=== PATIENT | female | born 1990 ===

== ENCOUNTER 2016-12-31 16:46 | Emergency (ER) | payer OTHER ==
--- NOTE | 2016-12-31 17:16 | ED CLINICAL REPORT ---
Clinical Report - Physicians/Mid Levels [facility] [address] [place] [address] 12/31/2016 16:47 Patient: STEFAN ADORNO Time Seen: 16:58 Dec 31 2016. Arrived- By private vehicle. HISTORY OF PRESENT ILLNESS Chief Complaint: DENTAL PAIN. This started today and is still present. Pain described as mild. The patient has had toothache. (right dental pain since this morning. Reports taking Motrin in the milligrams 3 times today. Denies any fevers or chills. Possible crack fifth stable. Denies any facial swelling.). REVIEW OF SYSTEMS No cough, chest pain, missed periods, headache or skin rash. No enlarged lymph nodes. All systems otherwise negative, except as recorded above. PAST HISTORY Problems: Bronchitis. Additional Surgeries: no known surgeries. SOCIAL HISTORY Smoker- current status unknown. No alcohol use. ADDITIONAL NOTES The nursing notes have been reviewed. PHYSICAL EXAM Vital Signs: 12/31/2016 16:56 BP: 135/95. HR: 70. RR: 20. O2 saturation: 100%. Temp: 98.2 F. Pain level now: 9/10. Appearance: Alert. Head: Normal external inspection. Eyes: Conjunctivae and eyelids normal. ENT: Dental tenderness (Right upper molar with someinflammation surrounding the right molar and swelling of the gumline no palpable mass). Nose normal. Pharynx normal. Lips normal. Uvula midline. No nasal discharge. Normal ear exam. Neck: Trachea midline. No adenopathy. No thyromegaly. CVS: Normal heart rate and rhythm. Heart sounds normal. Respiratory: No respiratory distress. Breath sounds normal. Abdomen: Soft. No organomegaly. No rebound tenderness. Skin: Normal skin color. No rash. PROGRESS AND PROCEDURES Course of Care: Uvula midline no facial swelling, no signs of Luis Armando's angina. No lymphadenopathy. Patient very stable. Tolerating her own secretions well. Stable. Patient is stable. Physical exam findings are improved. Symptoms better. Patient/family counseled. Disposition: Discharged. CLINICAL IMPRESSION Mild dental pain. INSTRUCTIONS Drink plenty of fluids. Prescription Medications: Hydrocodone/APAP 5mg / 325mg: take 1 orally every 6 hours as needed for pain. Dispense five (5). No refill. Amoxicillin 500 mg tablets: Take 1 orally every 8 hours for 10 days. Dispense thirty (30). No refills. Follow-up: Follow up with doctor in three days. (Electronically signed by Shantel Garcia P.A.-C 12/31/2016 17:18)
--- NOTE | 2016-12-31 17:16 | ED ORDER SUMMARY ---
..... Patient: STEFAN ADORNO OrderSheet [facility] VisitID: [id number] [address] [place] [address] 26y, F Registration Date/Time: 12/31/2016 ORDER SHEET Weight: 81.6 kg (stated) Allergies: No Known Drug Allergy GENERAL ORDERS: MEDICATION ORDERS: Amoxicillin PO 500 mg (NOW) (16:56 12/31/2016 EKoroleva P.A.-C) (Ack 17:02 SRoberts R.N.) (17:12 SRoberts R.N.) Hydrocodone-APAP PO 5/325 mg (NOW, HIGH ALERT MEDICATION) (16:57 12/31/2016 EKoroleva P.A.-C) (Ack 17:02 SRoberts R.N.) (17:12 SRoberts R.N.) IV FLUIDS: ORDER SHEET NOTES: [Electronically signed by Shantel Garcia PAndrezAAndrez-C (17:18 12/31/2016)] [Electronically signed by Melany Patterson R.N. (18:21 12/31/2016)] [Electronically signed by Melany Patterson R.N. (18:22 12/31/2016)] [Electronically signed by Melany Patterson R.N. (18:23 12/31/2016)] [Electronically signed by Melany Patterson R.N. (18:24 12/31/2016)] [Electronically locked/signed by Melany Patterson R.N. (18:21 12/31/2016)]
--- NOTE | 2016-12-31 17:16 | ED ORDER SUMMARY ---
..... Patient: STEFAN ADORNO OrderSheet [facility] VisitID: [id number] [address] [place] [address] 26y, F Registration Date/Time: 12/31/2016 ORDER SHEET Weight: 81.6 kg (stated) Allergies: No Known Drug Allergy GENERAL ORDERS: MEDICATION ORDERS: Amoxicillin PO 500 mg (NOW) (16:56 12/31/2016 EKoroleva P.A.-C) (Ack 17:02 SRoberts R.N.) (17:12 SRoberts R.N.) Hydrocodone-APAP PO 5/325 mg (NOW, HIGH ALERT MEDICATION) (16:57 12/31/2016 EKoroleva P.A.-C) (Ack 17:02 SRoberts R.N.) (17:12 SRoberts R.N.) IV FLUIDS: ORDER SHEET NOTES: [Electronically signed by Shantel Garcia PAndrezAAndrez-C (17:18 12/31/2016)] [Electronically signed by Melany Patterson R.N. (18:21 12/31/2016)] [Electronically signed by Melany Patterson R.N. (18:22 12/31/2016)] [Electronically signed by Melany Patterson R.N. (18:23 12/31/2016)] [Electronically signed by Melany Patterson R.N. (18:24 12/31/2016)] [Electronically locked/signed by Melany Patterson R.N. (18:21 12/31/2016)]
--- NOTE | 2016-12-31 17:16 | ED CLINICAL REPORT ---
Clinical Report - Physicians/Mid Levels [facility] [address] [place] [address] 12/31/2016 16:47 Patient: STEFAN ADORNO Time Seen: 16:58 Dec 31 2016. Arrived- By private vehicle. HISTORY OF PRESENT ILLNESS Chief Complaint: DENTAL PAIN. This started today and is still present. Pain described as mild. The patient has had toothache. (right dental pain since this morning. Reports taking Motrin in the milligrams 3 times today. Denies any fevers or chills. Possible crack fifth stable. Denies any facial swelling.). REVIEW OF SYSTEMS No cough, chest pain, missed periods, headache or skin rash. No enlarged lymph nodes. All systems otherwise negative, except as recorded above. PAST HISTORY Problems: Bronchitis. Additional Surgeries: no known surgeries. SOCIAL HISTORY Smoker- current status unknown. No alcohol use. ADDITIONAL NOTES The nursing notes have been reviewed. PHYSICAL EXAM Vital Signs: 12/31/2016 16:56 BP: 135/95. HR: 70. RR: 20. O2 saturation: 100%. Temp: 98.2 F. Pain level now: 9/10. Appearance: Alert. Head: Normal external inspection. Eyes: Conjunctivae and eyelids normal. ENT: Dental tenderness (Right upper molar with someinflammation surrounding the right molar and swelling of the gumline no palpable mass). Nose normal. Pharynx normal. Lips normal. Uvula midline. No nasal discharge. Normal ear exam. Neck: Trachea midline. No adenopathy. No thyromegaly. CVS: Normal heart rate and rhythm. Heart sounds normal. Respiratory: No respiratory distress. Breath sounds normal. Abdomen: Soft. No organomegaly. No rebound tenderness. Skin: Normal skin color. No rash. PROGRESS AND PROCEDURES Course of Care: Uvula midline no facial swelling, no signs of Luis Armando's angina. No lymphadenopathy. Patient very stable. Tolerating her own secretions well. Stable. Patient is stable. Physical exam findings are improved. Symptoms better. Patient/family counseled. Disposition: Discharged. CLINICAL IMPRESSION Mild dental pain. INSTRUCTIONS Drink plenty of fluids. Prescription Medications: Hydrocodone/APAP 5mg / 325mg: take 1 orally every 6 hours as needed for pain. Dispense five (5). No refill. Amoxicillin 500 mg tablets: Take 1 orally every 8 hours for 10 days. Dispense thirty (30). No refills. Follow-up: Follow up with doctor in three days. (Electronically signed by Shantel Garcia P.A.-C 12/31/2016 17:18)
--- NOTE | 2016-12-31 17:16 | ED NURSING NOTES ---
Clinical Report - Nurses [facility] [place] [address] [place] [address] 12/31/2016 16:47 Patient: STEFAN ADORNO TRIAGE Triage time 16:56. Acuity: LEVEL 3. Chief Complaint: RIGHT UPPER TOOTHACHE and CHIPPED TOOTH. Alert. No acute distress. --17:01 Melany Patterson R.N. 16:56 12/31/16. BP: 135/95. HR: 70. RR: 20. O2 saturation: 100%. Temp: 98.2 F. Pain level now: 05/06. --17:01 Melany Patterson R.N. Weight: 81.6 kg stated. Height/Length: 66 inches. BMI: 29. --17:01 Melany Patterson R.N. Medications Methotrexate Oral. --16:59 Melany Patterson R.N. The following entry was struck by Melany Patterson R.N., 17:00 (12/31/16) Reason - other. <<STRICKEN ENTRY-- Bactrim DS Oral 1 tablet, 2x a day. --16:59 Melany Patterson R.N. --END STRIKE>>. Medication/allergy information source: the patient. --17:01 Melany Patterson R.N. Allergies No Known Drug Allergy. --16:59 Melany Patterson R.N. History Arrived by private vehicle. Historian: patient and family. Primary physician ([facility]). This started today. She has had facial pain. 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 PAST MEDICAL HX: Immunizations: up-to-date. Last normal menstrual period was 1 week ago. SOCIAL HX: Light tobacco smoker (cigarette)- less than 1/2 a pack per day. No alcohol use or drug use. FALL RISK ASSESSMENT: Fall risk assessment completed. No fall risk identified. NUTRITIONAL RISK ASSESSMENT: The nutritional risk assessment revealed no deficiencies. FUNCTIONAL ASSESSMENT: Functional assessment: no impairments noted. LEARNING NEEDS ASSESSMENT: The learning needs assessment revealed no barriers. SKIN INTEGRITY ASSESSMENT: Skin integrity risk assessment completed. No skin integrity risk identified. --17:01 Melany Patterson R.N. PROBLEMS: Bronchitis. --16:58 Melany Patterson R.N. ADDITIONAL SURGERIES: no known surgeries. Interventions ID band on patient. To room. --17:01 Melany Patterson R.N. PHYSICAL ASSESSMENT Ambulatory to room. GENERAL / NEURO / PSYCH: Alert. Oriented X 4. HEENT: Voice within normal limits. Dental tenderness. Dental decay. Mucous membranes are pink. RESPIRATORY: Respirations not labored. CVS: Capillary refill less than 2 seconds. SKIN: Skin is warm and dry. Normal skin turgor. --17:02 Melany Patterson R.N. NURSING PROGRESS NOTES Head of bed elevated. Two patient identifiers checked. Call light placed in reach. Side rails up x 1. Bed placed in lowest position. Brakes of bed on. Patient ready for evaluation. --17:02 Melany Patterson R.N. 17:07 12/31/2016 Amoxicillin PO 500 mg given. Allergies verified and confirmed 5 rights. --17:12 Melany Patterson R.N. 17:07 12/31/2016 Hydrocodone-APAP (Hydrocodone-Acetaminophen) PO 5/325 mg Tablets 1 tab given. Allergies verified, confirmed 5 rights and sedative warning given to the patient. --17:12 Melany Patterson R.N. DISPOSITION / DISCHARGE Condition at departure: improved. The goals identified in the patient's plan of care were met. No learning barriers present. Patient and spouse verbalized understanding. Written instructions provided in Samoan. The patient was discharged by the physician assistant spa director. She was discharged home and accompanied by spouse. She left the Emergency Department ambulatory and via private vehicle. Spouse driving. Patient has no belongings. FALL RISK ASSESSMENT: Fall risk assessment completed. No fall risk identified. --17:42 Leigh Kern R.N. 17:39 12/31/16. BP: 107/64. HR: 66. RR: 16. O2 saturation: 97%. Temp: 98.3 F. Pain level now: 7/10. Additional comments: pt stating 7/10 pain level, just recently recieved oral pain meds as prescribed by ED MD. --17:42 Leigh Kern R.N. Locked/Released at 12/31/2016 18:24 by Melany Patterson R.N.
--- NOTE | 2016-12-31 17:16 | ED NURSING NOTES ---
Clinical Report - Nurses [facility] [address] [place] [address] 12/31/2016 16:47 Patient: STEFAN ADORNO TRIAGE Triage time 16:56. Acuity: LEVEL 3. Chief Complaint: RIGHT UPPER TOOTHACHE and CHIPPED TOOTH. Alert. No acute distress. --17:01 Melany Patterson R.N. 16:56 12/31/16. BP: 135/95. HR: 70. RR: 20. O2 saturation: 100%. Temp: 98.2 F. Pain level now: 05/06. --17:01 Melany Patterson R.N. Weight: 81.6 kg stated. Height/Length: 66 inches. BMI: 29. --17:01 Melany Patterson R.N. Medications Methotrexate Oral. --16:59 Melany Patterson R.N. The following entry was struck by Melany Patterson R.N., 17:00 (12/31/16) Reason - other. <<STRICKEN ENTRY-- Bactrim DS Oral 1 tablet, 2x a day. --16:59 Melany Patterson R.N. --END STRIKE>>. Medication/allergy information source: the patient. --17:01 Melany Patterson R.N. Allergies No Known Drug Allergy. --16:59 Melany Patterson R.N. History Arrived by private vehicle. Historian: patient and family. Primary physician ([facility]). This started today. She has had facial pain. 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 PAST MEDICAL HX: Immunizations: up-to-date. Last normal menstrual period was 1 week ago. SOCIAL HX: Light tobacco smoker (cigarette)- less than 1/2 a pack per day. No alcohol use or drug use. FALL RISK ASSESSMENT: Fall risk assessment completed. No fall risk identified. NUTRITIONAL RISK ASSESSMENT: The nutritional risk assessment revealed no deficiencies. FUNCTIONAL ASSESSMENT: Functional assessment: no impairments noted. LEARNING NEEDS ASSESSMENT: The learning needs assessment revealed no barriers. SKIN INTEGRITY ASSESSMENT: Skin integrity risk assessment completed. No skin integrity risk identified. --17:01 Melany Patterson R.N. PROBLEMS: Bronchitis. --16:58 Melany Patterson R.N. ADDITIONAL SURGERIES: no known surgeries. Interventions ID band on patient. To room. --17:01 Melany Patterson R.N. PHYSICAL ASSESSMENT Ambulatory to room. GENERAL / NEURO / PSYCH: Alert. Oriented X 4. HEENT: Voice within normal limits. Dental tenderness. Dental decay. Mucous membranes are pink. RESPIRATORY: Respirations not labored. CVS: Capillary refill less than 2 seconds. SKIN: Skin is warm and dry. Normal skin turgor. --17:02 Melany Patterson R.N. NURSING PROGRESS NOTES Head of bed elevated. Two patient identifiers checked. Call light placed in reach. Side rails up x 1. Bed placed in lowest position. Brakes of bed on. Patient ready for evaluation. --17:02 Melany Patterson R.N. 17:07 12/31/2016 Amoxicillin PO 500 mg given. Allergies verified and confirmed 5 rights. --17:12 Melany Patterson R.N. 17:07 12/31/2016 Hydrocodone-APAP (Hydrocodone-Acetaminophen) PO 5/325 mg Tablets 1 tab given. Allergies verified, confirmed 5 rights and sedative warning given to the patient. --17:12 Melany Patterson R.N. DISPOSITION / DISCHARGE Condition at departure: improved. The goals identified in the patient's plan of care were met. No learning barriers present. Patient and spouse verbalized understanding. Written instructions provided in Chadian. The patient was discharged by the physician boilermaker's assistant. She was discharged home and accompanied by spouse. She left the Emergency Department ambulatory and via private vehicle. Spouse driving. Patient has no belongings. FALL RISK ASSESSMENT: Fall risk assessment completed. No fall risk identified. --17:42 Leigh Kern R.N. 17:39 12/31/16. BP: 107/64. HR: 66. RR: 16. O2 saturation: 97%. Temp: 98.3 F. Pain level now: 7/10. Additional comments: pt stating 7/10 pain level, just recently recieved oral pain meds as prescribed by ED MD. --17:42 Leigh Kern R.N. Locked/Released at 12/31/2016 18:24 by Melany Patterson R.N.
--- NOTE | 2016-12-31 18:24 | ED MAR SUMMARY ---
..... Medication Administration Record [facility] [address] [place] [address] Patient: STEFAN ADORNO Visit ID: [id number] 26y, F Weight: 81.6 kg Height/Length: 66 in BMI: 29 ALLERGIES: No Known Drug Allergy Given 17:12/31/2016 Melany Patterson R.N. Medication Administered: AMOXICILLIN [PO], Dose: 500 mg PO. Medication Ordered: Amoxicillin PO 500 mg (NOW). Given 17:12/31/2016 Melany Patterson R.N. Medication Administered: HYDROCODONE-APAP [PO] (HYDROCODONE-ACETAMINOPHEN), Dose: 1 tab 5/325 mg Tablets PO. Medication Ordered: Hydrocodone-APAP PO 5/325 mg (NOW, HIGH ALERT MEDICATION).
--- NOTE | 2016-12-31 18:24 | ED MED RECONCILIATION SUMMARY ---
Patient: STEFAN ADORNO Medication Reconciliation Report [facility] VisitID: [id number] [address] [place] [address] 26y, F Registration Date/Time: 12/31/2016 Weight: 81.6 kg Height/Length: 66 in. BMI: 29.0 ALLERGIES: No Known Drug Allergy The patient's Home Medications are listed below: THE FOLLOWING MEDICATIONS NEED TO BE RECONCILED: Methotrexate Oral The source(s) of the original Home Medication information: patient The following Medications were given to the patient in the Emergency Department: Amoxicillin [PO] PO 500 mg, administered: 12/31/2016 5:07:00 PM Hydrocodone-APAP [PO] PO 1 tab, administered: 12/31/2016 5:07:00 PM The following Medications were prescribed to the patient: Hydrocodone/APAP 5mg / 325mg: take 1 orally every 6 hours as needed for pain. Dispense five (5). No refill. -- Shantel Garcia, P.ACarmenza Amoxicillin 500 mg tablets: Take 1 orally every 8 hours for 10 days. Dispense thirty (30). No refills. -- Shantel Garcia P.ACarmenza
--- NOTE | 2016-12-31 18:24 | ED MAR SUMMARY ---
..... Medication Administration Record [facility] [address] [place] [address] Patient: STEFAN ADORNO Visit ID: [id number] 26y, F Weight: 81.6 kg Height/Length: 66 in BMI: 29 ALLERGIES: No Known Drug Allergy Given 17:12/31/2016 Melany Patterson R.N. Medication Administered: AMOXICILLIN [PO], Dose: 500 mg PO. Medication Ordered: Amoxicillin PO 500 mg (NOW). Given 17:12/31/2016 Melany Patterson R.N. Medication Administered: HYDROCODONE-APAP [PO] (HYDROCODONE-ACETAMINOPHEN), Dose: 1 tab 5/325 mg Tablets PO. Medication Ordered: Hydrocodone-APAP PO 5/325 mg (NOW, HIGH ALERT MEDICATION).
--- NOTE | 2016-12-31 18:24 | ED DISCHARGE INSTRUCTIONS ---
Patient: STEFAN ADORNO General Instructions [facility] VisitID: [id number] [place] [address] 26y, F Registration Date/Time: 12/31/2016 Mild dental pain. INSTRUCTIONS Drink plenty of fluids. Prescription Medications: Hydrocodone/APAP 5mg / 325mg: take 1 orally every 6 hours as needed for pain. Dispense five (5). No refill. Amoxicillin 500 mg tablets: Take 1 orally every 8 hours for 10 days. Dispense thirty (30). No refills. Follow-up: Follow up with doctor in three days. ADDITIONAL INFORMATION Dental Pain A crack or cavity in the tooth, which exposes the sensitive inner area of the tooth can cause tooth pain. An infection in the gum or the root of the tooth can cause pain and swelling. The pain is often made worse by drinking hot or cold fluids, or biting on hard foods. Pain may spread from the tooth to the ear or jaw on the same side. Home Care: Avoid hot and cold foods and liquids since your tooth may be sensitive to temperature changes. If your tooth is chipped or cracked, or if there is a large open cavity, apply OIL OF CLOVES (available [id number] in drug stores) directly to the tooth to reduce pain. Some pharmacies carry an [id number] "toothache kit." This contains a paste, which can be applied over the exposed tooth to decrease sensitivity. A cold pack on your jaw over the sore area may help reduce pain. You may use acetaminophen (Tylenol) or ibuprofen (Motrin, Advil) to control pain, unless another medicine was prescribed. [ NOTE: If you have chronic liver or kidney disease or ever had a stomach ulcer or GI bleeding, talk with your doctor before using these medicines.] If you have signs of an infection, an antibiotic will be given. Take it as directed. Follow-Up as directed with a dentist. Your pain may go away with the treatment given. However, only a dentist can fully evaluate and treat the cause and prevent the pain from coming back again. TOOTHACHE IS A SIGN OF DISEASE IN YOUR TOOTH AND SHOULD BE EXAMINED AND TREATED BY A DENTIST. Get Prompt Medical Attention if any of the following occur: Your face becomes swollen or red Pain worsens or spreads to the neck Fever over 100.4 F (38.0 C) Unusual drowsiness; headache or stiff neck; weakness or fainting Pus drains from the tooth Difficulty swallowing or breathing Hydrocodone Bitartrate, Acetaminophen Oral tablet What is this medicine? ACETAMINOPHEN; HYDROCODONE (a set a ZEESHAN pippa fen; marquita droe KOE done) is a pain reliever. It is used to treat mild to moderate pain. How should I use this medicine? Take this medicine by mouth. Swallow it with a full glass of water. Follow the directions on the prescription label. If the medicine upsets your stomach, take the medicine with food or milk. Do not take more than you are told to take. Talk to your gre instructor regarding the use of this medicine in children. This medicine is not approved for use in children. What side effects may I notice from receiving this medicine? Side effects that you should report to your doctor or health complex care nurse as soon as possible: allergic reactions like skin rash, itching or hives, swelling of the face, lips, or tongue breathing problems confusion feeling faint or lightheaded, falls stomach pain yellowing of the eyes or skin Side effects that usually do not require medical attention (report to your doctor or health complex care nurse if they continue or are bothersome): nausea, vomiting stomach upset What may interact with this medicine? alcohol antihistamines isoniazid medicines for depression, anxiety, or psychotic disturbances medicines for sleep muscle relaxants naltrexone narcotic medicines (opiates) for pain phenobarbital ritonavir tramadol What if I miss a dose? If you miss a dose, take it as soon as you can. If it is almost time for your next dose, take only that dose. Do not take double or extra doses. Where should I keep my medicine? Keep out of the reach of children. This medicine can be abused. Keep your medicine in a safe place to protect it from theft. Do not share this medicine with anyone. Selling or giving away this medicine is dangerous and against the law. Store at room temperature between 15 and 30 degrees C (59 and 86 degrees F). Protect from light. Keep container tightly closed. Throw away any unused medicine after the expiration date. Discard unused medicine and used packaging carefully. Pets and children can be harmed if they find used or lost packages. What should I tell my health care provider before I take this medicine? They need to know if you have any of these conditions: brain tumor Crohn's disease, inflammatory bowel disease, or ulcerative colitis drink more than 3 alcohol-containing drinks per day drug abuse or addiction head injury heart or circulation problems kidney disease or problems going to the bathroom liver disease lung disease, asthma, or breathing problems an unusual or allergic reaction to acetaminophen, hydrocodone, other opioid analgesics, other medicines, foods, dyes, or preservatives or trying to get breast-feeding What should I watch for while using this medicine? Tell your doctor or health complex care nurse if your pain does not go away, if it gets worse, or if you have new or a different type of pain. You may develop tolerance to the medicine. Tolerance means that you will need a higher dose of the medicine for pain relief. Tolerance is normal and is expected if you take the medicine for a long time. Do not suddenly stop taking your medicine because you may develop a severe reaction. Your body becomes used to the medicine. This does NOT mean you are addicted. Addiction is a behavior related to getting and using a drug for a non-medical reason. If you have pain, you have a medical reason to take pain medicine. Your doctor will tell you how much medicine to take. If your doctor wants you to stop the medicine, the dose will be slowly lowered over time to avoid any side effects. You may get drowsy or dizzy when you first start taking the medicine or change doses. Do not drive, use machinery, or do anything that may be dangerous until you know how the medicine affects you. Stand or sit up slowly. There are different types of narcotic medicines (opiates) for pain. If you take more than one type at the same time, you may have more side effects. Give your health care provider a list of all medicines you use. Your doctor will tell you how much medicine to take. Do not take more medicine than directed. Call emergency for help if you have problems breathing. The medicine will cause constipation. Try to have a bowel movement at least every 2 to 3 days. If you do not have a bowel movement for 3 days, call your doctor or health complex care nurse. Too much acetaminophen can be very dangerous. Do not take Tylenol (acetaminophen) or medicines that contain acetaminophen with this medicine. Many non-prescription medicines contain acetaminophen. Always read the labels carefully. You have been given the following additional information: Dental Pain Hydrocodone Bitartrate, Acetaminophen Oral tablet (Electronically signed by Shantel Garcia P.A.-C 12/31/2016 17:18)
--- NOTE | 2016-12-31 18:24 | ED DISCHARGE INSTRUCTIONS ---
Patient: STEFAN ADORNO General Instructions [facility] VisitID: [id number] [place] [address] 26y, F Registration Date/Time: 12/31/2016 Mild dental pain. INSTRUCTIONS Drink plenty of fluids. Prescription Medications: Hydrocodone/APAP 5mg / 325mg: take 1 orally every 6 hours as needed for pain. Dispense five (5). No refill. Amoxicillin 500 mg tablets: Take 1 orally every 8 hours for 10 days. Dispense thirty (30). No refills. Follow-up: Follow up with doctor in three days. ADDITIONAL INFORMATION Dental Pain A crack or cavity in the tooth, which exposes the sensitive inner area of the tooth can cause tooth pain. An infection in the gum or the root of the tooth can cause pain and swelling. The pain is often made worse by drinking hot or cold fluids, or biting on hard foods. Pain may spread from the tooth to the ear or jaw on the same side. Home Care: Avoid hot and cold foods and liquids since your tooth may be sensitive to temperature changes. If your tooth is chipped or cracked, or if there is a large open cavity, apply OIL OF CLOVES (available [id number] in drug stores) directly to the tooth to reduce pain. Some pharmacies carry an [id number] "toothache kit." This contains a paste, which can be applied over the exposed tooth to decrease sensitivity. A cold pack on your jaw over the sore area may help reduce pain. You may use acetaminophen (Tylenol) or ibuprofen (Motrin, Advil) to control pain, unless another medicine was prescribed. [ NOTE: If you have chronic liver or kidney disease or ever had a stomach ulcer or GI bleeding, talk with your doctor before using these medicines.] If you have signs of an infection, an antibiotic will be given. Take it as directed. Follow-Up as directed with a dentist. Your pain may go away with the treatment given. However, only a dentist can fully evaluate and treat the cause and prevent the pain from coming back again. TOOTHACHE IS A SIGN OF DISEASE IN YOUR TOOTH AND SHOULD BE EXAMINED AND TREATED BY A DENTIST. Get Prompt Medical Attention if any of the following occur: Your face becomes swollen or red Pain worsens or spreads to the neck Fever over 100.4 F (38.0 C) Unusual drowsiness; headache or stiff neck; weakness or fainting Pus drains from the tooth Difficulty swallowing or breathing Hydrocodone Bitartrate, Acetaminophen Oral tablet What is this medicine? ACETAMINOPHEN; HYDROCODONE (a set a ZEESHAN pippa fen; marquita droe KOE done) is a pain reliever. It is used to treat mild to moderate pain. How should I use this medicine? Take this medicine by mouth. Swallow it with a full glass of water. Follow the directions on the prescription label. If the medicine upsets your stomach, take the medicine with food or milk. Do not take more than you are told to take. Talk to your supervisor production regarding the use of this medicine in children. This medicine is not approved for use in children. What side effects may I notice from receiving this medicine? Side effects that you should report to your doctor or health respiratory care practitioner as soon as possible: allergic reactions like skin rash, itching or hives, swelling of the face, lips, or tongue breathing problems confusion feeling faint or lightheaded, falls stomach pain yellowing of the eyes or skin Side effects that usually do not require medical attention (report to your doctor or health respiratory care practitioner if they continue or are bothersome): nausea, vomiting stomach upset What may interact with this medicine? alcohol antihistamines isoniazid medicines for depression, anxiety, or psychotic disturbances medicines for sleep muscle relaxants naltrexone narcotic medicines (opiates) for pain phenobarbital ritonavir tramadol What if I miss a dose? If you miss a dose, take it as soon as you can. If it is almost time for your next dose, take only that dose. Do not take double or extra doses. Where should I keep my medicine? Keep out of the reach of children. This medicine can be abused. Keep your medicine in a safe place to protect it from theft. Do not share this medicine with anyone. Selling or giving away this medicine is dangerous and against the law. Store at room temperature between 15 and 30 degrees C (59 and 86 degrees F). Protect from light. Keep container tightly closed. Throw away any unused medicine after the expiration date. Discard unused medicine and used packaging carefully. Pets and children can be harmed if they find used or lost packages. What should I tell my health care provider before I take this medicine? They need to know if you have any of these conditions: brain tumor Crohn's disease, inflammatory bowel disease, or ulcerative colitis drink more than 3 alcohol-containing drinks per day drug abuse or addiction head injury heart or circulation problems kidney disease or problems going to the bathroom liver disease lung disease, asthma, or breathing problems an unusual or allergic reaction to acetaminophen, hydrocodone, other opioid analgesics, other medicines, foods, dyes, or preservatives or trying to get breast-feeding What should I watch for while using this medicine? Tell your doctor or health respiratory care practitioner if your pain does not go away, if it gets worse, or if you have new or a different type of pain. You may develop tolerance to the medicine. Tolerance means that you will need a higher dose of the medicine for pain relief. Tolerance is normal and is expected if you take the medicine for a long time. Do not suddenly stop taking your medicine because you may develop a severe reaction. Your body becomes used to the medicine. This does NOT mean you are addicted. Addiction is a behavior related to getting and using a drug for a non-medical reason. If you have pain, you have a medical reason to take pain medicine. Your doctor will tell you how much medicine to take. If your doctor wants you to stop the medicine, the dose will be slowly lowered over time to avoid any side effects. You may get drowsy or dizzy when you first start taking the medicine or change doses. Do not drive, use machinery, or do anything that may be dangerous until you know how the medicine affects you. Stand or sit up slowly. There are different types of narcotic medicines (opiates) for pain. If you take more than one type at the same time, you may have more side effects. Give your health care provider a list of all medicines you use. Your doctor will tell you how much medicine to take. Do not take more medicine than directed. Call emergency for help if you have problems breathing. The medicine will cause constipation. Try to have a bowel movement at least every 2 to 3 days. If you do not have a bowel movement for 3 days, call your doctor or health respiratory care practitioner. Too much acetaminophen can be very dangerous. Do not take Tylenol (acetaminophen) or medicines that contain acetaminophen with this medicine. Many non-prescription medicines contain acetaminophen. Always read the labels carefully. You have been given the following additional information: Dental Pain Hydrocodone Bitartrate, Acetaminophen Oral tablet (Electronically signed by Shantel Garcia P.A.-C 12/31/2016 17:18)
--- NOTE | 2016-12-31 18:24 | ED MED RECONCILIATION SUMMARY ---
Patient: STEFAN ADORNO Medication Reconciliation Report [facility] VisitID: [id number] [address] [place] [address] 26y, F Registration Date/Time: 12/31/2016 Weight: 81.6 kg Height/Length: 66 in. BMI: 29.0 ALLERGIES: No Known Drug Allergy The patient's Home Medications are listed below: THE FOLLOWING MEDICATIONS NEED TO BE RECONCILED: Methotrexate Oral The source(s) of the original Home Medication information: patient The following Medications were given to the patient in the Emergency Department: Amoxicillin [PO] PO 500 mg, administered: 12/31/2016 5:07:00 PM Hydrocodone-APAP [PO] PO 1 tab, administered: 12/31/2016 5:07:00 PM The following Medications were prescribed to the patient: Hydrocodone/APAP 5mg / 325mg: take 1 orally every 6 hours as needed for pain. Dispense five (5). No refill. -- Shantel Garcia, P.ACarmenza Amoxicillin 500 mg tablets: Take 1 orally every 8 hours for 10 days. Dispense thirty (30). No refills. -- Shantel Garcia P.ACarmenza
== END 2016-12-31 17:40 | disposition home or self-care (01) ==
LOC: ED SRH 16:46
DX: K08.89 Other specified disorders of teeth and supporting structures (principal); F17.210 Nicotine dependence, cigarettes, uncomplicated